=== PATIENT | female | born 1960 | race Caucasian/White ===

== ENCOUNTER → 2018-05-18 | Outpatient (CLI) | payer BC | LOC: COL.RAD 14:06 | DX: S73.192A Other sprain of left hip, initial encounter (principal) | CPT/HCPCS: A9585; Q9967 ==

== ENCOUNTER → 2020-12-29 | Outpatient (CLI) | payer BC ==
[~2020-12-29] MED LIST: AMBIEN 10MG10 MG PO; ANTACID ULTRA1000 M1; ASPIRIN 81M81 MG/TA2 PO; ATIVAN 1MG T1 MG/TAB PO; BENLYSTA200 MG/1 M SQ; CELEXA 20MG20 MG/TAB PO; DITROPAN 5MG TAB5 MG PO; IMURAN 50MG TAB50 MG PO; PLAQUENIL 200M200 MG PO; PLAVIX 75MG TAB75 MG PO; PREMARIN 0.60.625 M1 PO; PRILOSEC 20MG20 MG PO
== END ==
LOC: COL.RAD 08:56
DX: M16.0 Bilateral primary osteoarthritis of hip (principal); M25.852 Other specified joint disorders, left hip

== ENCOUNTER 2021-03-03 19:49 | Observation (INO) | payer BC ==
[~2021-03-03] VITALS: Ht 172.7 cm; Wt 56.8 kg
[2021-03-03 20:41] LABS: BASO % 0.7 % (0.0-2.0); EOS # 0.1 (0.0-0.7); EOS % 3.2 % (0-4.0); GRAN # 2.8 (1.4-6.5); HEMOGLOBIN 11.1 g/dl (12.5-16.0); LYMPH # 1.1 (1.2-3.4); LYMPH % 24.1 % (20.0-51.0); MEAN CELL VOLUME 99 fl (80.0-100.0); MEAN CORPUSCULAR HEMOGLOBIN 33 pg (27.0-31.0); MEAN CORPUSCULAR HGB CONC 33 g/dl (33.0-37.0); MEAN PLATELET VOLUME 9.5 fl (7.4-10.4); MONO # 0.4 (0.1-0.6); MONO % 8.8 % (1.7-9.3); PLATELET COUNT 222 K/mm3 (130-400); RED BLOOD COUNT 3.41 M/mm3 (4.10-5.30); REDCELL DISTRIBUTION WIDTH-CV 13.2 % (11.5-14.5)
[2021-03-03 20:42] LABS: HEMATOCRIT 33.6 % (37.0-47.0)
[2021-03-03 20:51] LABS: PROTHROMBIN TIME 10.9 SECONDS (9.7-12.8)
[2021-03-03 20:54] LABS: ALANINE AMINOTRANSFERASE 23 U/L (4-34); ALBUMIN 3.9 gm/dL (3.5-5.0); ALKALINE PHOSPHATASE 29 U/L (50-136); ANION GAP 4 mmol/L (7-16); AST,SGOT 32 U/L (15-37); BILIRUBIN,TOTAL 0.2 mg/dL (0.0-1.0); BLOOD UREA NITROGEN 15 mg/dL (7-17); CALCIUM 8.9 mg/dL (8.4-10.2); CARBON DIOXIDE 30 mmol/L (22-30); CHLORIDE 96 mmol/L (98-107); CREATININE, serum 0.82 (0.52-1.25); GLUCOSE 86 mg/dL (74-106); POTASSIUM 3.7 mmol/L (3.4-5.0); SODIUM 130 mmol/L (137-145); TOTAL PROTEIN 6.6 gm/dL (6.4-8.2)
[2021-03-03 21:07] LABS: TROPONIN-I < 0.012 ng/mL (0.000-0.035)
[2021-03-03 21:12] LABS: COLLECTION METHOD CLEAN CATCH
[2021-03-03 21:18] LABS: PH 7 (5-8); SQUAMOUS EPITHELIAL 0-2 /hpf; URINE APPEARANCE Clear; URINE BACTERIA None Seen /hpf; URINE BILIRUBIN Negative (NEGATIVE); URINE BLOOD Negative (NEGATIVE); URINE COLOR Colorless; URINE GLUCOSE Negative (NEGATIVE); URINE KETONE Negative (NEGATIVE); URINE LEUKOCYTE ESTERASE Trace (NEGATIVE); URINE NITRATE Negative (NEGATIVE); URINE PROTEIN(semi-quant) Negative (NEGATIVE); URINE RBC 0-2 /hpf; URINE UROBILINOGEN Negative (NEGATIVE); URINE WBC 0-2 /hpf
[2021-03-03] MEDS ORDERED: BENLYSTA200 MG/1 M SQ (21:51)
[2021-03-03] MEDS ORDERED: ANTACID ULTRA1000 M1 (21:52)
[2021-03-03] MEDS ORDERED: CELEXA 20MG20 MG/TAB PO (21:53)
[2021-03-03] MEDS ORDERED: PREMARIN 0.60.625 M1 PO (21:54)
[2021-03-03] MEDS ORDERED: PLAQUENIL 200M200 MG PO (21:55)
[2021-03-03] MEDS ORDERED: ATIVAN 1MG T1 MG/TAB PO (21:56)
[2021-03-03] MEDS ORDERED: IMURAN 50MG TAB50 MG PO (21:56)
[2021-03-03] MEDS ORDERED: AMBIEN 10MG10 MG PO (21:57)
[2021-03-03] MEDS ORDERED: PRILOSEC 20MG20 MG PO (21:57)
[2021-03-03] MEDS ORDERED: DITROPAN 5MG TAB5 MG PO (21:57)
[2021-03-04 08:28] VITALS: BP 125/50; PULSE 68; TEMP 98
--- NOTE | 2021-03-04 09:44 | NUR ---
Pt. admitted to room 323. Pt. A&Ox4. Pt. was oriented to her room, along with call light and room telephone. Pt.'s daughter Jessica at bedside. Dr. Jose from Neurology was in to see the pt. as well. New orders obtained for lab work. Pt. agreeable w/ plan of care. Call light in reach, needs addressed.
--- NOTE | 2021-03-04 11:13 | NUR ---
Pt. reports she had eye surgery on her left eye. Pt.'s left eye pupil is smaller than the R eye pupil when the room is dark. The left eye pupil is brisk and 2-4mm. Pt.'s R eye pupil is about 6mm when the room is dark and reacts briskly to about 4mm when light is shined on it.
--- NOTE | 2021-03-04 11:48 | NUR ---
Dr. Baer inquiring about when Pt.'s MRI will be done. This RN called MRI phone number and spoke with radiology staff member. Staff member reports pt.'s MRI will be completed this afternoon and they will be calling later today to let this RN know when they will be taking the patient.
[2021-03-04 11:55] VITALS: BP 117/63; PULSE 68; TEMP 97.6
--- NOTE | 2021-03-04 13:54 | NUR ---
First visit from the counter hop. No needs right now.
[2021-03-04 16:57] VITALS: BP 113/55; PULSE 66; TEMP 98.1
--- NOTE | 2021-03-04 18:34 | NUR ---
Pt. got MRI this afternoon. Pt. ate dinner and reports she is feeling OK. Call light and belongings in reach. Fluids discontinued per order. Needs addressed.
[2021-03-04 19:07] VITALS: BP 122/56; PULSE 68; TEMP 98.2
--- NOTE | 2021-03-04 20:00 | NUR ---
PATIENT IS ALERT AND ORIENTED X4. PATIENT HASIV TO THE RIGHT AC. PATIENT IS UP AND INDEPENDENT IN ROOM. PATIENT STATES HER FACE IS FEELING LESS NUMB THAN EARLIER. PATIENT DENIES PAIN OR FURTHER NEEDS AT THIS TIME. CALL LIGHT WITHIN REACH. HEAD TO TOE ASSESSMENT COMPLETE.
--- NOTE | 2021-03-04 21:30 | NUR ---
PATIENT IS COMPLAINING OF HEARTBURN. MEDS GIVEN PER ORDERS
[2021-03-04 23:43] VITALS: BP 119/56; PULSE 86; TEMP 98.5
[2021-03-05 03:32] VITALS: BP 128/58; PULSE 65; TEMP 98.7
--- NOTE | 2021-03-05 06:22 | NUR ---
PATIENT DID WELL THROUGHOUT NIGHT. SLEPT MOST OF NIGHT. TYLENOL GIVEN PER ORDERS FOR HEADACHE AT 0615. NEURO CHECKS DONE PER ORDERS. NO FURTHER NEEDS AT THIS TIME. WILL REPORT TO DAY SHIFT.
[2021-03-05 07:17] VITALS: BP 113/48; PULSE 66; TEMP 98.1
[2021-03-05 07:21] LABS: EOS # 0.2 (0.0-0.7); EOS % 7.7 % (0-4.0); GRAN # 1.5 (1.4-6.5); GRAN % 46.4 % (42.2-75.2); HEMATOCRIT 37.7 % (37.0-47.0); HEMOGLOBIN 12.3 g/dl (12.5-16.0); LYMPH % 32.4 % (20.0-51.0); MEAN CELL VOLUME 100 fl (80.0-100.0); MEAN CORPUSCULAR HEMOGLOBIN 33 pg (27.0-31.0); MEAN CORPUSCULAR HGB CONC 33 g/dl (33.0-37.0); MEAN PLATELET VOLUME 9.5 fl (7.4-10.4); MONO # 0.4 (0.1-0.6); MONO % 12.2 % (1.7-9.3); PLATELET COUNT 233 K/mm3 (130-400); RED BLOOD COUNT 3.79 M/mm3 (4.10-5.30); REDCELL DISTRIBUTION WIDTH-CV 13.4 % (11.5-14.5)
[2021-03-05 07:27] LABS: CALCIUM 9.3 mg/dL (8.4-10.2); CHOLESTEROL RISK RATIO 2.7; CREATININE, serum 0.69 (0.52-1.25); MAGNESIUM 1.9 mg/dL (1.6-2.3); POTASSIUM 3.9 mmol/L (3.4-5.0)
--- NOTE | 2021-03-05 08:00 | NUR ---
PATIENT IS A&O. VSS. C/O BULLARD AND WAS GIVEN PRN TYLENOL. NEURO CHECKS WNL. HEAD TO TOE ASSESSMENT COMPLETE. NO C/O PAIN, DIZZINESS OR NAUSEA. BREAKFAST TRAY AT BEDSIDE. AM MEDS GIVEN. PATIENT EAT/DRINK/VOIDING SUFFICENT AMOUNTS. RIGHT AC IV TO INT. NO OTHER NEEDS AT THIS TIME. CALL LIGHT IN REACH.
[2021-03-05] MEDS ORDERED: ASPIRIN 81M81 MG/TA2 PO (08:55)
--- NOTE | 2021-03-05 08:55 | NUR ---
HOSPITALIST TEAM ROUNDING. AT BEDSIDE. PATIENT DISCHARGING HOME LATER TODAY, SEE ORDERS.
--- NOTE | 2021-03-05 10:08 | NUR ---
IV d/c, catheter intact, presure dressing applied, pt tolerated well, pt has no further questions at this time
[2021-03-05] MEDS ORDERED: PLAVIX 75MG TAB75 MG PO (10:55)
--- NOTE | 2021-03-05 11:10 | NUR ---
PATIENT DISCHARGING HOME VIA AMBULATORY TO PERSONAL VEHICLE WITH . GAVE DISCHARGE INSTRUCTIONS, E-SCRIPTS SENT, AND F/U APT DISCUSSED. CALLED TO CONFIRM HE WANTED PATIENT TO DISCHARGE HOME ON [address] AND PLANS SET THE PATIENT UP WITH [facility] AT HER F/U APT WITH HIM. ANSWERED ALL QUESTIONS/CONCERNS. DC'D RIGHT AC IV AND COVERED SITE WITH GAUZE. TELE DC'D. PATIENT IS DRESSED, PACKED & ESCORTED OUT.
== END 2021-03-05 11:25 | disposition home or self-care (01) ==
LOC: COL.ER 19:49 → SURG 22:56
PROVIDERS: Emergency Medicine; Internal Medicine; ADMIT Student in an Organized Health Care Education/Training Program
DX: R20.0 Anesthesia of skin (principal); M32.9 Systemic lupus erythematosus, unspecified; R29.810 Facial weakness; E87.1 Hypo-osmolality and hyponatremia; K21.9 Gastro-esophageal reflux disease without esophagitis; F32.9 Major depressive disorder, single episode, unspecified; G47.00 Insomnia, unspecified; Z20.822 Contact with and (suspected) exposure to COVID-19; G89.29 Other chronic pain; M25.559 Pain in unspecified hip; Z79.899 Other long term (current) drug therapy
CPT/HCPCS: G0378; J1650; J7030; J7500; Q9967

== ENCOUNTER → 2021-04-23 | Outpatient (CLI) | payer BC | LOC: COL.RAD 10:38 | DX: G45.9 Transient cerebral ischemic attack, unspecified (principal) | CPT/HCPCS: Q9967 ==